=== PATIENT | female | born 1995 | race American Indian/Alaskan Native ===

== ENCOUNTER 2018-01-19 23:54 | Emergency (ER) | payer SELFPAY ==
[2018-01-20 00:38] VITALS: BP 114/79
[2018-01-20 02:09] LABS: HCG Qualitative,Urine Negative (Negative)
--- NOTE | 2018-01-20 04:10 | Emergency Department Report ---
ED Female HPI - General Chief complaint: Urogenital-Female Stated complaint: POSSIBLE UTI, RASH IN GROIN AREA Time Seen by Provider: 01/20/18 03:48 Source: patient Mode of arrival: Ambulatory Limitations: No Limitations - History of Present Illness Initial comments: 22-year-old -[place] female presents to the emergency room for complaint of rash on the groin area that was about a week ago. Patient reports at that time she started to get back a little cold shock to her labia for vaginal and the next day or 2 she started to have small bumps. Patient denies any pain to those bumps. She denies any dysuria no vaginal discharge or nausea vomiting fever or chills. She reports her last sexual encounter was November 24 she reports she thought he had one partner. She's recently moved here from [place]. She does not have a primary care provider at this time. MD Complaint: possible STD -: week(s) (1) Location: labia Severity scale (0 -10): 0 Are you Now?: No Last Menstrual Period: 01/01/18 EDC: 10/08/18 Associated Symptoms: denies other symptoms. denies: vaginal discharge, vaginal bleeding, abdominal pain, nausea/vomiting, fever/chills, dysuria - Related Data Sexually active: Yes Allergies Allergy/AdvReac Type Severity Reaction Status Date / Time No Known Allergies Allergy Unverified 01/20/18 00:38 ED Review of Systems ROS: Stated complaint: POSSIBLE UTI, RASH IN GROIN AREA Other details as noted in HPI Constitutional: denies: chills, fever Eyes: denies: eye pain, eye discharge, vision change ENT: denies: ear pain, throat pain Respiratory: denies: cough, shortness of breath, wheezing Cardiovascular: denies: chest pain, palpitations Endocrine: no symptoms reported Gastrointestinal: denies: abdominal pain, nausea, diarrhea Genitourinary: other (bump on her vaginal area). denies: urgency, dysuria, discharge Musculoskeletal: denies: back pain, joint swelling, arthralgia Skin: rash (groin area) Neurological: denies: headache, weakness, paresthesias Psychiatric: denies: anxiety, depression Hematological/Lymphatic: denies: easy bleeding, easy bruising ED Past Medical Hx - Past Medical History Previous Medical History?: No - Surgical History Past Surgical History?: No - Social History Smoking Status: Current Every Day Smoker Substance Use Type: Alcohol ED Physical Exam - General Limitations: No Limitations General appearance: alert, in no apparent distress - Head Head exam: Present: atraumatic, normocephalic - Eye Eye exam: Present: normal appearance - Neurological Exam Neurological exam: Present: alert, oriented X3 - Psychiatric Psychiatric exam: Present: normal affect, normal mood - Skin Skin exam: Present: other (small lesion to the left labia nontender to palpate) ED Course Vital Signs 01/20/18 00:32 Temperature 98.3 F Pulse Rate 108 H Respiratory 17 Rate Blood Pressure 114/79 O2 Sat by Pulse 99 Oximetry ED Medical Decision Making - Medical Decision Making Patient has been evaluated by this provider fast track. I discussed with patient that this is possibly herpetic lesions. I discussed the patient that she can go to the health department and they will check for herpes at that time. I discussed the patient I will list the health department so she could follow up. Patient verbalized understanding. Critical care attestation.: If time is entered above; I have spent that time in minutes in the direct care of this critically ill patient, excluding procedure time. ED Disposition Clinical Impression: Rash and nonspecific skin eruption Disposition: DC-01 TO HOME OR SELFCARE Is pt being admited?: No Does the pt Need Aspirin: No Condition: Stable Instructions: Acute Rash (ED) Additional Instructions: Please follow up at the health department for further evaluation of her rash. Referrals: PREETHI ROGERS MD [Primary Care Provider] [facility] [Outside] - 3-5 Days Forms: Work/School Release Form(ED)
== END 2018-01-20 04:27 | disposition home or self-care (01) ==
LOC: ED 23:54
DX: R21 Rash and other nonspecific skin eruption (principal); F17.200 Nicotine dependence, unspecified, uncomplicated
CPT/HCPCS: 81025; 87086; 99283